=== PATIENT | male | born 1985 ===

== ENCOUNTER 2021-07-11 10:45 | Emergency (ER) | payer MEDICAID, OTHER ==
[~2021-07-11] VITALS: Ht 182.9 cm; Wt 77.1 kg
[2021-07-11] MEDS ORDERED: SODIUM CHLORIDE 0.9% 1,000 ML IVB ONE (11:00)
[2021-07-11] MEDS ORDERED: LORazepam 2MG/ML-1ML VIAL IV ONE (11:00)
[2021-07-11 11:03] VITALS: BP 123/73
[2021-07-11 11:36] LABS: Albumin 3.8 g/dL (3.4-5.0); Calcium 9.4 mg/dL (8.5-10.1)
[2021-07-11 11:38] LABS: Basophils # (auto) 0 10 ^3/uL (0-0.2); Basophils % (auto) 0.4 % (0.0-2.0); Eosinophils # (auto) 0.1 10 ^3/uL (0-0.8); Eosinophils % (auto) 3.1 % (0.0-7.0); Hemoglobin 13.9 g/dL (13.5-17.5); Mean Corpuscular Hemoglobin 33.3 pg (28.0-32.0); Mean Corpuscular Hgb Conc. 34.8 g/dL (32.0-36.0); Mean Corpuscular Volume 95.9 fL (80.0-100.0); Monocytes # (auto) 0.7 10 ^3/uL (0-1.3); Monocytes % (auto) 16.1 % (0.0-12.0); Neutrophils # (auto) 2.3 10 ^3/uL (1.6-8.6); Neutrophils % (auto) 55.4 % (37.0-80.0); Red Blood Cells 4.18 10^6/uL (4.5-5.90); Red Cell Distribution Width 13.9 % (11.8-14.3); White Blood Cell 4.2 10^3/uL (4.4-10.8)
[2021-07-11 11:39] LABS: BUN/Creatinine Ratio 3.9
[2021-07-11 11:41] LABS: Bilirubin, Total 1.3 mg/dL (0.2-1.0)
[2021-07-11 11:46] LABS: Potassium 2.6 mmol/L (3.5-5.1)
[2021-07-11] MEDS ORDERED: POTASSIUM CHL 20 Meq TABLET PO ONE (12:15)
== END 2021-07-11 12:22 | disposition left against medical advice (07) ==
LOC: ER 10:45
DX: F10.230 Alcohol dependence with withdrawal, uncomplicated (principal); R56.9 Unspecified convulsions; E87.6 Hypokalemia; E87.1 Hypo-osmolality and hyponatremia; E87.8 Other disorders of electrolyte and fluid balance, not elsewhere classified; F17.210 Nicotine dependence, cigarettes, uncomplicated; Y90.0 Blood alcohol level of less than 20 mg/100 ml
CPT/HCPCS: 36415; 70450; 80053; 80320; 85025; 93005